=== PATIENT | male | born 1940 ===

== ENCOUNTER → 2017-07-29 | Outpatient (REF) | payer MEDICARE | LOC: ZZSENDIN 12:00 | PROVIDERS: ATTEND Internal Medicine Nephrology | DX: Z02.9 Encounter for administrative examinations, unspecified (principal) | CPT/HCPCS: 88108 ==

== ENCOUNTER → 2017-09-30 | Outpatient (REF) | payer MEDICARE | LOC: ZZSENDIN 01:00 | PROVIDERS: ATTEND Internal Medicine Nephrology | DX: N39.0 Urinary tract infection, site not specified (principal) | CPT/HCPCS: 88108 ==